=== PATIENT | male | born 1940 | race Two or more races ===

== ENCOUNTER 2025-02-09 15:10 | Emergency (ER) | payer OTHER ==
[~2025-02-09] VITALS: Ht 157.5 cm; Wt 63.0 kg
[2025-02-09] MEDS ORDERED: MEMANTINE HCL10 MG (16:33)
[2025-02-09] MEDS ORDERED: SERTRALINE20 MG/1 ML (16:33)
[2025-02-09] MEDS ORDERED: RIVASTIGMINE6 MG (16:33)
[2025-02-09] MEDS ORDERED: SEROQUEL25 MG (16:34)
[2025-02-09] MEDS ORDERED: VITAMIN D31 ML (16:34)
[2025-02-09] MEDS ORDERED: METFORMIN HCL500 M3 (16:34)
[2025-02-09] MEDS ORDERED: FOLIC ACID0.8 M1 (16:34)
[2025-02-09] MEDS ORDERED: TAMSULOSIN HCL0.4 MG (16:35)
[2025-02-09] MEDS ORDERED: FINASTERIDE5 MG (16:35)
[2025-02-09] MEDS ORDERED: ECOTRIN81 MG (16:35)
[2025-02-09] MEDS ORDERED: LIPITOR40 M1 (16:35)
[2025-02-09] MEDS ORDERED: ENALAPRILAT DIHYDRATE 1.25 MG/ML VIAL IV STA (16:58)
[2025-02-09] MEDS ORDERED: KETOROLAC TROMETHAMINE 15 MG VIAL IM STA (16:59)
[2025-02-09] MEDS ORDERED: DICYCLOMINE HCL 20 MG TABLET PO STA (16:59)
[2025-02-09] MEDS ORDERED: ONDANSETRON HCL 2 MG/ML VIAL IV STA (16:59)
[2025-02-09] MEDS ORDERED: FAMOTIDINE/PF 20 MG/2 ML VIAL IV STA (16:59)
[2025-02-09] MEDS ORDERED: 0.9 % SODIUM CHLORIDE 500 ML IV STA (17:00)
[2025-02-09 20:50] LABS: BASO % 0.2 % (0.1-1.2); EOS # 0.07 (0.04-0.54); EOS % 0.6 % (0.7-7.0); LYMPH # 2.16 (1.18-3.74); LYMPH % 17.5 % (19.3-53.1); MEAN PLATELET VOLUME 10.60 fl (9.4-12.4); MONO # 1.20 (0.24-0.82); MONO % 9.7 % (4.7-12.5); NEUT # 8.78 (1.56-6.13); NEUT % 71.4 % (34.0-71.1); RED CELL DISTRIBUTION WIDTH 12.6 % (11.6-14.4)
[2025-02-09 21:28] LABS: URINE APPEARANCE Clear; URINE BILIRRUBIN Negative (NEGATIVE); URINE BLOOD Negative; URINE COLOR Dark Yellow; URINE GLUCOSE Negative (NEGATIVE); URINE KETONE 15 (NEGATIVE); URINE LEUKOCYTE Negative; URINE NITRATE Negative; URINE UROBILINOGEN 1.0 E.U./dl
[2025-02-09 21:33] LABS: URINE BACTERIA 38.8 uL (0.0-1933); URINE EPITHELIAL CELLS 8.1 uL (0.0-38.8); URINE RBC 2.9 uL (0.0-20.8); URINE WBC 4.7 uL (0.0-23.2)
[2025-02-09 21:48] LABS: URINE CAST 0.84 uL (0.0-1.40); URINE PROTEIN 100 (NEGATIVE)
[2025-02-09 21:58] LABS: ALT/SGPT 20.0 U/L (12-78); AST/SGOT 16.0 U/L (15-37); BILIRUBIN TOTAL 0.75 mg/dL (0.3-1.2); BUN CREA RATIO 24.0 (7.0-25.0); CREATININE SERUM 0.84 mg/dL (0.70-1.30); GFR 87.48; GLOBULINA 3.9 G/DL (2.4-3.5); GLUCOSE FASTING 157.0 mg/dL (65-100); OSMOLALITY SERUM 272.0 MOSM/KG (275-295); TSH 1.76 uIU/mL (0.358-3.74)
[2025-02-09] MEDS ORDERED: PEPCID AC20 MG PO (23:38)
[2025-02-09] MEDS ORDERED: DULCOLAX STOOL100 M1 PO (23:40)
== END 2025-02-10 04:31 | disposition home or self-care (01) ==
LOC: ER 15:10
PROVIDERS: General Practice
DX: K52.89 Other specified noninfective gastroenteritis and colitis (principal); K59.00 Constipation, unspecified; R10.9 Unspecified abdominal pain; K80.20 Calculus of gallbladder without cholecystitis without obstruction